=== PATIENT | male | born 1960 | race Hispanic/Latino ===

== ENCOUNTER 2021-09-11 20:42 | Emergency (ER) | payer SELFPAY ==
[2021-09-11] MEDS ORDERED: methylPREDNISolone Sod Succ/PF 125 MG/2 ML VIAL ONE (21:00)
[2021-09-11 21:04] LABS: #Basophils 0.1 10x3/uL (0.0-0.2); #Monocytes 0.6 10x3/uL (0.0-1.1); #Neutrophils 4.3 10x3/uL (1.5-8.4); %Basophils 1.1 % (0.0-2.0); %Eosinophils 12.5 % (0.0-6.0); %Lymphocytes 25.7 % (18.0-47.0); %Monocytes 7.5 % (0.0-10.0); %Neutrophils 52.2 % (40.0-75.0); Mean Corpuscular HGB CONC 33.7 g/dL (32.0-36.0); Mean Corpuscular Hemoglobin 29.3 pg (27.0-33.0); Mean Platelet Volume 8.9 fl (7.4-10.4); Platelet Count 281 10x3/uL (150-450); RBC Distribution Width 13.2 % (11.5-14.5); Red Blood Cell (RBC) Count 5.46 10x6/uL (4.32-5.72); White Blood Cell (WBC) Count 8.3 10x3/uL (3.5-10.5)
[2021-09-11 21:27] LABS: ALT (SGPT) 35 U/L (8-55); AST (SGOT) 19 U/L (5-34); Albumin 3.9 g/dL (3.4-4.8); Alkaline Phosphatase 67 U/L (40-110); Anion Gap 12 mmol/L (10-20); BUN (Urea Nitrogen) 14 mg/dL (8.4-25.7); Bilirubin, Total 0.7 mg/dL (0.2-1.2); Calc. Creatinine Clearance 0 mL/min (70-130); Carbon Dioxide 27 mmol/L (23-31); Chloride 106 mmol/L (98-107); Globulin 2.5 g/dL (2.4-3.5); Glucose 163 mg/dL (80-115); Potassium 4.2 mmol/L (3.5-5.1); Protein, Total 6.4 g/dL (5.8-8.1); Sodium 141 mmol/L (136-145)
[2021-09-11] MEDS ORDERED: Albuterol Sulfate 2.5 mg/3 ml Neb ONE (21:32)
== END 2021-09-11 22:47 | disposition home or self-care (01) ==
LOC: CSHERS 20:42
DX: R06.00 Dyspnea, unspecified (principal); J44.9 Chronic obstructive pulmonary disease, unspecified; Z87.891 Personal history of nicotine dependence; Z79.899 Other long term (current) drug therapy
CPT/HCPCS: 71045; 80053; 83880; 84484; 85025; 93005; 94640; 96374; J2930; J7611; J7620

== ENCOUNTER 2021-10-17 12:05 | Emergency (ER) | payer OTHER, SELFPAY ==
[2021-10-17] MEDS ORDERED: Magnesium 2 GM/50 ML BAG (IN WATER) ONE (12:59)
[2021-10-17] MEDS ORDERED: Dexamethasone 10 MG/ML VIAL ONE (12:59)
[2021-10-17] MEDS ORDERED: Albuterol Sulfate 2.5 mg/3 ml Neb ONE (13:48)
[2021-10-17 13:53] LABS: #Basophils 0.1 10x3/uL (0.0-0.2); #Monocytes 0.9 10x3/uL (0.0-1.1); #Neutrophils 5.4 10x3/uL (1.5-8.4); %Basophils 1.4 % (0.0-2.0); %Eosinophils 10.6 % (0.0-6.0); %Lymphocytes 22.5 % (18.0-47.0); %Monocytes 8.9 % (0.0-10.0); %Neutrophils 56.1 % (40.0-75.0); Hemoglobin 16.6 g/dL (13.5-17.5); Mean Corpuscular HGB CONC 32.6 g/dL (32.0-36.0); Mean Corpuscular Hemoglobin 29.2 pg (27.0-33.0); Mean Corpuscular Volume 89.6 fl (81.2-95.1); Platelet Count 291 10x3/uL (150-450); RBC Distribution Width 13.1 % (11.5-14.5); Red Blood Cell (RBC) Count 5.68 10x6/uL (4.32-5.72); White Blood Cell (WBC) Count 9.6 10x3/uL (3.5-10.5)
[2021-10-17 14:09] LABS: ALT (SGPT) 26 U/L (8-55); AST (SGOT) 18 U/L (5-34); Albumin 4.1 g/dL (3.4-4.8); Alkaline Phosphatase 67 U/L (40-110); Anion Gap 13 mmol/L (10-20); BUN (Urea Nitrogen) 14 mg/dL (8.4-25.7); Bilirubin, Total 0.4 mg/dL (0.2-1.2); Calc. Creatinine Clearance 0 mL/min (70-130); Calcium 9.4 mg/dL (7.8-10.44); Carbon Dioxide 26 mmol/L (23-31); Chloride 105 mmol/L (98-107); Globulin 2.9 g/dL (2.4-3.5); Glucose 98 mg/dL (80-115); Lipase 21 U/L (8-78); Potassium 4.2 mmol/L (3.5-5.1); Sodium 140 mmol/L (136-145)
[2021-10-18 14:45] LABS: SARS-CoV-2 PCR by NAA Not Detected (NotDetected)
== END 2021-10-17 16:12 | disposition home or self-care (01) ==
LOC: CSHERS 12:05
DX: J45.901 Unspecified asthma with (acute) exacerbation (principal); Z87.891 Personal history of nicotine dependence; Z79.899 Other long term (current) drug therapy
CPT/HCPCS: 36415; 71045; 74177; 80053; 83690; 85025; 94640; 94760; 96365; 96375; J1100; J3475; J7611; J7620; U0003; U0005

== ENCOUNTER 2022-03-01 15:58 | Emergency (ER) | payer OTHER ==
[2022-03-01] MEDS ORDERED: Lidocaine 2% MPF 10 ML AMP (For Epidural Use) ONE ×2 (16:26→16:35)
[2022-03-01] MEDS ORDERED: Boostrix 0.5 ML (Tdap) VIAL ONE (16:35)
[2022-03-01] MEDS ORDERED: Ibuprofen 200 MG TAB ONE (17:02)
[2022-03-01] MEDS ORDERED: Triple Antibiotic Oint 1 GM Packet ONE (17:24)
== END 2022-03-01 17:16 | disposition home or self-care (01) ==
LOC: CSHERS 15:58
DX: S60.451A Superficial foreign body of left index finger, initial encounter (principal); Z23 Encounter for immunization; Z87.891 Personal history of nicotine dependence; W29.4XXA Contact with nail gun, initial encounter
CPT/HCPCS: 10120; 90471; 90715

== ENCOUNTER 2022-03-04 13:45 | Emergency (ER) | payer OTHER ==
[2022-03-04] MEDS ORDERED: Ketorolac Tromethamine 30 MG/ML VIAL ONE (14:39)
== END 2022-03-04 15:31 | disposition home or self-care (01) ==
LOC: CSHERS 13:45
DX: M25.561 Pain in right knee (principal); Z87.891 Personal history of nicotine dependence
CPT/HCPCS: 96372; 99283; J1885